=== PATIENT | female | born 2000 | race Caucasian/White ===

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

== ENCOUNTER 2020-10-20 21:32 | Emergency (ER) | payer BC, OTHER ==
[~2020-10-20 21:32] MED LIST: INDERAL TAB 1010 MG PO; MULTIPLE VITAM1 EACH PO; SERTRALINE HCL100 MG PO; SERTRALINE HCL50 MG PO; TRAMADOL HCL50 MG PO
[2020-10-20] MEDS ORDERED: AUGMENTIN 875-1 EACH PO (22:20)
[2020-10-20] MEDS ORDERED: IBU400 MG PO (22:20)
== END 2020-10-20 23:00 | disposition home or self-care (01) ==
LOC: ER1 21:32
DX: S61.255A Open bite of left ring finger without damage to nail, initial encounter (principal); Z23 Encounter for immunization; W55.01XA Bitten by cat, initial encounter; Y92.009 Unspecified place in unspecified non-institutional (private) residence as the place of occurrence of the external cause
CPT/HCPCS: 73130; 90471; 90715; 99283